=== PATIENT | male | born 1995 | race Two or more races ===

== ENCOUNTER 2023-06-01 21:41 | Emergency (ER) | payer OTHER ==
[~2023-06-01] VITALS: Ht 182.9 cm; Wt 127.0 kg
[2023-06-01] MEDS ORDERED: LIDOCAINE HCL 1% 20 ML VIAL ONE (23:00)
[2023-06-01] MEDS ORDERED: SULFAMETH/TRIMETH 800/160 MG TABLET PO ONE (23:00)
[2023-06-01] MEDS ORDERED: CEFTRIAXONE 1 G VIAL ONE (23:00)
[2023-06-01] MEDS ORDERED: SULFAMETH/TRIMETH 800/160 MG TABLET ONE (23:00)
[2023-06-01] MEDS ORDERED: CEFTRIAXONE 1 G VIAL IM ONE (23:00)
[2023-06-01] MEDS ORDERED: SULF1TAB48 PO (23:08)
[2023-06-01] MEDS ORDERED: CEPH500T PO (23:08)
[2023-06-01 23:28] VITALS: BP 140/77; O2SAT 99
== END 2023-06-01 23:29 | disposition home or self-care (01) ==
LOC: ER 22:46
DX: S61.231A Puncture wound without foreign body of left index finger without damage to nail, initial encounter (principal); F17.210 Nicotine dependence, cigarettes, uncomplicated; W26.8XXA Contact with other sharp object(s), not elsewhere classified, initial encounter; Y93.89 Activity, other specified; Y92.89 Other specified places as the place of occurrence of the external cause; Y99.8 Other external cause status
CPT/HCPCS: 99283; 99406; 73140; 96372; J0696; J3490; A4606; A4663